=== PATIENT | male | born 1985 | race African-American/Black ===

== ENCOUNTER 2025-06-21 19:49 | Emergency (ER) | payer MEDICAID ==
[~2025-06-21] VITALS: Ht 188 cm; Wt 77.2 kg
[2025-06-21 20:02] VITALS: TEMP 36.7; O2SAT 99
[2025-06-21] MEDS: KETOROLAC 30MG/ML VIAL IM ONE (22:40)
[2025-06-21 22:56] LABS: PLATELET 193 x1000/uL (130-400); RED BLOOD CELL COUNT 6.63 mill/uL (4.7-6.1); RED CELL DISTRIBUTION WIDTH 15.2 % (11.6-14.6)
[2025-06-21 23:07] LABS: CREATININE 1.0 mg/dL (0.6-1.3); UREA NITROGEN BLOOD 10 mg/dL (9-23)
[2025-06-21 23:08] LABS: TROPONIN I HIGH SENSITIVITY < 4 ng/L (3.0-53)
[2025-06-21] MEDS ORDERED: LIDO-53 TP (23:45)
[2025-06-21 23:51] VITALS: BP 122/81; PULSE 71; RESP 12; O2SAT 100
== END 2025-06-21 23:56 | disposition home or self-care (01) ==
LOC: ER 19:49
DX: R07.81 Pleurodynia (principal); M79.18 Myalgia, other site; Z55.6 Problems related to health literacy
CPT/HCPCS: 99283; 80048; 85027; 85379; 84484; 36415; 96372; J1885